=== PATIENT | male | born 1945 | race Caucasian/White ===

== ENCOUNTER 2016-03-20 05:56 | Inpatient (IN) ==
[2016-03-20] MEDS ORDERED: Lidocaine 1% 20 ML MDV ID ONE (06:19)
[2016-03-20] MEDS ORDERED: CeFAZolin Pre 2,000 MG/100 ML 2,000 MG/100 ML BAG IVPB ONE (06:19)
[2016-03-20] MEDS ORDERED: Vancomycin 1,250 MG in D5% in Water 250 ML IVPB ONE ×2 (06:19→20:20)
[2016-03-20] MEDS ORDERED: Albuterol 2.5 MG/3 ML NEBULIZER ONE (06:30)
[2016-03-20] MEDS ORDERED: Albuterol 2.5 MG/3 ML NEBULIZER IH ONE (06:38)
--- NOTE | 2016-03-20 06:47 | Anesthesia Evaluation PreOp ---
Date of Encounter: 03/20/16 Time of Encounter: 06:45 - Past History Planned Operation: endograft AAA Cardiac History: Denies any Significant Hx, Other (stress 03/28: ef 72, neg ischemia) Pulmonary History: Smoker (1/2 ppd) BLOCK FEEDER History: Denies Any Significant HX Other Medical History: Denies Any Significant HX Anesthesia History: No Prior Anesthetic Complications, Past Anesthesia (r shoulder) Alcohol Use: rarely Drug use: none Medications and Allergies Allergies No Known Allergies Allergy (Verified 03/20/16 06:47) - Meds/Allergy Pre-op Review Medications Reviewed: Yes Allergies Reviewed: Yes Beta Blockers on Current Med List: No Anesthesia Results - Labs Laboratory Tests 03/17/16 03/17/16 03/17/16 10:40 10:40 10:40 Hgb 14.8 Hct 45.4 Plt Count 212 PT 11.5 INR 1.1 APTT 31.2 Sodium 141 Potassium 4.0 Creatinine 0.83 - Imaging EKG: report reviewed (sr) Anesthesia Exam O2 Sat Height 1.85 m Height 1.85 m Weight 84.822 kg Weight 84.822 kg O2 Sat by Pulse Oximetry 98 Vital Signs Temp Pulse Resp BP Pulse Ox 97.9 F 74 18 176/80 98 03/20/16 06:19 03/20/16 06:19 03/20/16 06:19 03/20/16 06:19 03/20/16 06:19 Height: 1.85 Weight: 84 NPO (# of Hours): >8 - HEENT Pupil (Motor): Pupils equal, EOMI Mallampati: III Teeth: Edentulous, Poor dentition Oral Opening: Greater than 3 - BLOCK FEEDER LOC: Oriented BLOCK FEEDER Motor: Normal RUE, Normal LUE, Normal RLE, Normal LLE, Normal Face BLOCK FEEDER Sensory: Normal: RUE, LUE, RLE, LLE, Face - Cardiac Rhythm: Regular Murmur: None - Pulmonary Breath Sounds: bilateral Clear Respiratory Effort: Symmetrical Anesthesia Assess/Plan ASA Score: 3 Modified Hunter Scale for Level of Consciousness: Cooperative, oriented, and tranquil Anesthetic Plan: General Monitoring Plan: Standard Monitors Recovery Plan: PACU
[2016-03-20] MEDS ORDERED: *HR* FentaNYL (PF) 100 MCG/2 ML VIAL ONE (07:02)
[2016-03-20] MEDS ORDERED: *HR* Propofol 200 MG/20 ML VIAL IVP ONE (07:02)
[2016-03-20] MEDS ORDERED: *HR* Midazolam HCl 5 MG/5 ML VIAL IVP ONE (07:03)
[2016-03-20] MEDS ORDERED: *HR* Rocuronium Bromide 50 MG/5 ML VIAL ONE ×2 (07:04→08:51)
[2016-03-20] MEDS ORDERED: Lidocaine -MPF 2% 2 ML VIAL ONE (07:04)
[2016-03-20] MEDS ORDERED: Ondansetron 4 MG/2 ML VIAL ONE (07:04)
[2016-03-20] MEDS ORDERED: Dexamethasone 4 MG/ML VIAL ONE (07:04)
[2016-03-20] MEDS ORDERED: *HR* Phenylephrine 10 MG/ML VIAL ONE (07:07)
[2016-03-20] MEDS ORDERED: Vancomycin 1,000 MG VIAL ONE (07:14)
[2016-03-20] MEDS ORDERED: Heparin 1,000 UNITS/500 mL NS 1,000 ML ONE (07:15)
--- NOTE | 2016-03-20 07:33 | History & Physical Report ---
Date of Encounter: 03/20/16 Time of Encounter: 07:28 24 Hour HP Update - Instructions Instructions: If the History and Physical is less than 30 days old and was completed prior to A.M. admission and or procedure and has NOT been updated on calendar day of procedure please complete this update prior to performing procedure. - Update Patient reports changes in Medical Condition: No Changes in assessment/condition: No Changes in Medication: No Preop tests/diagnostics Reviewed: Yes Surgery Remains Indicated: Yes Consent for Planned Operative Procedure(s) Verified: Yes - Pre-Operative Checklist Preoperative Checklist Indicated: Yes Prophylactic Antibiotic Ordered: Yes (Vancomycin due to MRSA risk) Home Medications Include Beta Genoveva: No Beta Genoveva Taken Today (Day of Surgery): No Beta Genoveva Taken Yesterday (Day Prior to Surgery): No Is VTE Prophylaxis Indicated?: Yes
[2016-03-20] MEDS: Ringers Solution, Lactated 1,000 ML IVC SCH ×2 (07:37→12:48)
[2016-03-20] MEDS ORDERED: *HR* HYDROmorphone (PF) 1 MG/ML SYRINGE IVP PRN (08:35)
[2016-03-20] MEDS ORDERED: *HR* Labetalol 100 MG/20 ML MDV IVP PRN (08:35)
[2016-03-20] MEDS ORDERED: *HR* Promethazine 25 MG/ML VIAL IVP PRN ×2 (08:35→13:00)
[2016-03-20] MEDS ORDERED: *HR* HYDROmorphone 2 MG/ML SYRINGE ONE (09:10)
[2016-03-20] MEDS ORDERED: *HR* Heparin 5,000 UNIT/ML VIAL ONE ×2 (09:23→10:23)
[2016-03-20] MEDS ORDERED: Heparin 1,000 UNITS/500 mL NS 1,500 ML ONE (10:11)
[2016-03-20] MEDS ORDERED: Neostigmine Methylsulfate 3 MG/3 ML SYRINGE ONE (11:35)
--- NOTE | 2016-03-20 12:30 | Operative Note ---
Date of procedure: 03/20/16 Pre-op diagnosis: 6.7cm infrarenal abdominal aortic aneurysm Post-op diagnosis: same Procedure: 1. Introduction of catheter into the aorta via right common femoral artery. 2. Introduction of catheter into the aorta via left common femoral artery. 3. Right femoral vessel exposure for endograft placement. 4. Left femoral vessel exposure for endograft placement. 5. Endograft repair of abdominal aortic aneurysm with Cook Zenith graft and two docking limbs including radiologic supervision and interpretation. 6. Left common iliac artery 10 x37mm stent post dilated with 12 x 40mm balloon. Complications: None Anesthesia: GETA Surgeon: Salvador Raymundo Supervisor Fur Dressing: Yogesh Pandya Estimated blood loss (cc): 100 Specimen: None Condition: stable Disposition: PACU Procedure in Detail: Indications: The patient is a 70 year old male who was found to have a 6.7cm infrarenal abdominal aortic aneurysm. His anatomy appeared acceptable for endograft placement. Procedure: The patient was identified, brought to the operating room and placed in the supine position on the operating room table. After induction of general endotracheal anesthesia, the patient was cleaned and draped in normal sterile fashion. Oblique incisions were made over both groins sharply. Hemostasis was obtained with electrocautery. Using blunt and sharp and electrocautery dissection, the bilateral common, deep and superficial femoral arteries were dissected circumferentially and surrounded with Vesseloops. At this point, the patient received 5000 units of heparin intravenously and then bilateral femoral punctures with large-bore needles were performed. Bentson wires were advanced into the aorta under fluoroscopic view. Given the anatomy, the main body was selected to be the right side of the patient. The needles were exchanged for bilateral #8-Yakut sheaths and a long Pigtail catheter was advanced over the right wire into the aortic arch. The wire was replaced with a Lunderquist wire. The catheter was removed and repositioned in the suprarenal aorta via the left femoral artery. The main body was inserted over the Lunderquist wire with the contralateral limb being in the anterolateral position. An aortogram was then performed at the level of the renal arteries. The graft was positioned just inferior to the renal arteries and the first 2 segments were deployed. Again an aortogram revealed adequate infrarenal placement. The graft was then further opened to the contralateral limb exposed. A final angiogram was performed confirming adequate infrarenal placement. The suprarenal stent was deployed in the usual fashion. The contralateral limb was then selected with a Bentson wire using a guiding catheter. Intragraft placement of the wire was confirmed by placing the pigtail and spinning it freely as well as injecting a small amount of contrast. An oblique view of the pelvis was performed with contrast to size the left extension limb. The #8-Yakut sheath was removed and exchanged for the appropriate limb, which was advanced under fluoroscopic view and positioned. It was then expanded. The introducer was removed. The remaining portion of the main body was deployed, the top cap was retrieved and the introducer was removed. An oblique view of the right pelvis was performed in a similar fashion to determine the length of the extension graft on the right. The graft extension was then advanced on the right and positioned in the usual fashion. Upon completion of the graft docking limb extension, a Coda balloon was then advanced into the graft proximal and distal endpoints as well as overlap were expanded with gentle pressure. The balloon was left in the suprarenal position and a Flush catheter was placed in the suprarenal aorta. A flush completion angiogram revealed no evidence of an endoleak. However, a high grade stenosis was present in the left iliac limb. This was intially treated with a 10 x 40mm balloon. However, the stenosis persisted. A 10 x 37mm stent was then deployed across the lesion and post dilated with a 12 x 40mm ballloon. A completeion angiogram revealed resolution of the stnosis. Tension was applied to the vessel loops in the groin. The bilateral sheaths were then removed. After confirming hemodynamic stability, the wires were then removed. The bilateral arteriotomies were repaired with a running 6-0 Prolene. Antibiotic irrigation was infused into the groin. Platelet rich and platelet poor plasma were infused into the incisions. The bilateral groins were closed with a single layer of 2-0 Vicryl followed by two layers of 3-0 Vicryl followed by a layer of 3-0 monocryl in the subcuticular region. Sterile dressings were applied. The patient was then extubated and taken to the recovery room in stable condition. COMPLICATIONS: None. FINDINGS: Juxtarenal positioning of the endograft with no Evidence of endoleak. DEVICE SIZES: 1. Main body, 28 x 96cm. 2. Contralateral leg, 13 x 90cm. 3. Ipsilateral leg, 13 x 74cm.
--- NOTE | 2016-03-20 12:49 | Anesthesia Evaluation Post Op ---
Date of Encounter: 03/20/16 Time of Encounter: 12:48 - Vital Signs Vital Signs: Selected Entries 03/20/16 12:41 Temperature 97.8 F Pulse Rate 62 Respiratory Rate 14 Blood Pressure 159/76 O2 Sat by Pulse Oximetry 100 Oxygen Flow Rate (LPM) 2 - Lungs Lungs: Clear Ascult./Percussion - Airway Airway: Non-obstructed - Cardiovascular Regular Rate - Mental Status Mental Status: Alert & Oriented, Answers Appropriately - Pain Pain Scale: 0 Pain Scale used: Numeric (1 - 10) - Nausea Vomiting Nausea Vomiting: Not Present - Hydration Hydration: Tolerates oral liquids, [place] catheter Notes: 03/20/16 12:48 no apparent anesthesia complications - Discharge PostOp Status: Transfer Patient to floor
[2016-03-20] MEDS ORDERED: Naloxone 0.4 MG/ML INJ IVP PRN (13:00)
[2016-03-20] MEDS ORDERED: *HR* Labetalol 20 MG/4 ML SYRINGE IVP PRN (13:00)
[2016-03-20] MEDS ORDERED: Ondansetron 4 MG/2 ML VIAL IVP PRN (13:00)
[2016-03-20] MEDS ORDERED: *HR* Morphine 2 MG/ML SYRINGE IVP PRN (13:00)
[2016-03-20] MEDS ORDERED: *HR* OxyCODONE Immed Rel 5 MG TABLET PO PRN (13:00)
[2016-03-20] MEDS ORDERED: *HR* HYDROcodone/Acet 5/325 mg TABLET PO PRN (13:00)
[2016-03-20] MEDS ORDERED: Acetaminophen 325 MG TABLET PO PRN (13:00)
[2016-03-20] MEDS: Nicotine 21 MG PATCH.TD24 TD SCH (15:04)
[2016-03-20] MEDS: ceFAZolin 2,000 MG in D5% in Water 100 ML IVPB SCH (15:52)
[2016-03-20] MEDS: *HR* Metoprolol 5 MG/5 ML VIAL IVP SCH (17:54)
--- NOTE | 2016-03-20 21:24 | Operative Note ---
Date of procedure: 03/20/16 Pre-op diagnosis: AAA Post-op diagnosis: same Procedure: Endovascular repair of abdominal aortic aneurysm using Hashtago Zenith stent graft system. (Main body via right side with components placement into the bilateral iliac system). Stent angioplasty of left common iliac artery with a 10 x 37 mm balloon expandable stent followed by further dilatation with balloon angioplasty with a 12 x 40 mm balloon. Right common iliac artery balloon angioplasty with 10 x 40 mm balloon. Complications: None Anesthesia: GETA Surgeon: Salvador Raymundo Co-Surgeon: Yogesh Pandya Estimated blood loss (cc): 100 Specimen: None Condition: stable Disposition: PACU Procedure in Detail: History Mr. Skinner is a 70-year-old white male with an abdominal aortic aneurysm. Patient had appropriate anatomy for endovascular repair and he now comes for endovascular treatment. Procedure After informed consent was obtained the patient was taken from the holding area to the operating room. General endotracheal anesthesia was established. The abdomen groin and upper thighs were sterilely prepped and draped. A timeout protocol was observed. A 2 team approach was utilized for this procedure due to the patient's ongoing medical problems. Also because of the need for complex intraoperative decision making and the multiple procedures that needed to be accomplished to decrease general anesthetic time and decrease blood loss. A 2 team approach was utilized so that the common femoral arteries were then opened and exposed. Controls obtained of the femoral vessels. Then using 18- gauge needles the arteries were punctured in a retrograde fashion. A guidewire was inserted. This was followed by a 8 Egyptian sheath and dilator. The dilator was removed and the sheath was aspirated and flushed. The wires were then manipulated under fluoroscopic control the placed in the proximal descending thoracic aorta. Systemic therapeutic anticoagulation was then achieved using intravenous heparin. Using the pigtail catheter the entry wire was then exchanged for a Lunderquist wire. The pigtail catheter was then placed via the left side onto the supra renal area. The main body was selected and this was a 28 x 96 mm bifurcated stent graft. The aortogram identified the location of the renal arteries and the main body was then placed with suprarenal fixation and preservation of the renal artery orifices. This was opened to the extent that the docking limb on the left side was exposed. This was then cannulated from the left side. Appropriate position of the wire within the stent graft was confirmed by the use of contrast. The left limb was then placed and this was a 13 x 90 Spiral Z limb. This was placed into the main body of the stent graft and was placed distally so that it would lie proximal to the iliac bifurcation. With this secure, attention was directed back to the right side. The top cap was recaptured and secured and the component was completely deployed. The top cap was then removed. The pigtail catheter was then reinserted and a repeat angiogram was obtained as had been obtained on the left side to measure the iliac system and iliac bifurcation. A 13 x 74 Spiral Z limb was selected. This was then deployed on the right side again with preservation of the right iliac bifurcation. A Coda balloon was then inserted via both the left and right side and gently inflated so that the stent graft and its components were completely dilated and fixed both proximally and distally and the Coda balloon was removed. The pigtail catheter was reinserted and another aortogram was obtained. This demonstrated patency of the stent graft and preservation of the renal arteries. However demonstrated significant stenosis in the left and right iliac system. Therefore the left iliac system was initially dilated with a 10 x 40 balloon. The resulting images however unsatisfactory. Therefore a 10 x 37 mm balloon expandable stent was placed into the left iliac system. This was deployed without difficulty. Following this a 12 x 40 mm balloon was inserted into the stent and the stent was then gently oversized so that it would appropriately oppose the stent to the wall of the stent graft. In addition a 10 x 40 mm balloon was used to dilate the right iliac system. With completion of these endovascular interventions the completion angiogram demonstrated successful results. The wire and catheters were removed. The puncture site at the groin were then closed using 6-0 Prolene suture bilaterally. After appropriate backbleeding and flushing the femoral system was unclamped and the legs were reperfused with pulsatile flow. Excellent pulsations of the femoral level were identified. The wounds were then irrigated with antibiotic containing solution. Hemostasis was achieved. The wounds were closed in layers using absorbable suture. Dry sterile dressings were applied. The patient was extubated in the operating room. There were no intraoperative complications. The patient tolerated the procedure well. The patient was taken to the recovery room in stable condition.
[2016-03-21] MEDS: *HR* Metoprolol 5 MG/5 ML VIAL IVP SCH ×2 (00:10→06:27)
[2016-03-21] MEDS: ceFAZolin 2,000 MG in D5% in Water 100 ML IVPB SCH (00:11)
[2016-03-21 05:18] LABS: Basophils % 0.2 %; Eosinophils % 0.1 %; Hematocrit 42.8 % (37.5-50.1); Hemoglobin 13.7 g/dL (12.9-16.9); Immature Granulocytes % 0.5 % (0-4); Immature Platelets 3.1 % (1.1-6.1); Lymphocytes # 1.2 K/mcL (0.6-4.6); Lymphocytes % 9.1 %; Mean Corpuscular Hemoglobin 27.1 pg (28.0-33.3); Mean Corpuscular Volume 84.8 fL (83.0-100.0); Mean Platelet Volume 9.3 fL (9.4-12.4); Monocytes # 1.2 K/mcL (0.0-1.3); Monocytes % 8.5 %; Neutrophils # 11.1 K/mcL (1.6-8.9); Platelet Count 187 K/mcL (140-400); Red Blood Count 5.05 M/mcL (4.19-5.50); Red Cell Distribution Width 14.1 % (11.5-14.5); Segmented Neutrophils % 81.6 %
[2016-03-21 05:30] LABS: BUN/Creatinine Ratio 12 (6-26); Blood Urea Nitrogen 9 mg/dL (8-26); Calcium 9.3 mg/dL (8.6-10.8); Carbon Dioxide 27 mEq/L (19-29); Chloride 104 mEq/L (98-109); Glucose 118 mg/dL (70-99); Osmolality,Calculated 290 (280-300); Potassium 4.3 mEq/L (3.5-4.5); Sodium 140 mEq/L (136-145); eGFR For African Americans > 60 (> 60); eGFR For Non-African Americans > 60 (> 60)
[2016-03-21] MEDS ORDERED: *HR* Heparin 5,000 UNIT/ML VIAL SQ SCH ×2 (06:00)
[2016-03-21 07:55] VITALS: BP 152/71
--- NOTE | 2016-03-21 07:59 | Discharge Summary ---
Date of Encounter: 03/21/16 Time of Encounter: 08:05 - Discharge Diagnosis (1) AAA (abdominal aortic aneurysm) without rupture Priority: Primary Status: Chronic Comments: The patient is postoperative day #1 after endograft repair of his aneurysm. He is without complaints. He will be discharged today. (2) Tobacco abuse Priority: Secondary Status: Chronic Comments: The patient was counseled regarding smoking cessation. - Discharge Medications Prescriptions: Aspirin Enteric Coated [Aspirin EC] 81 mg PO DAILY #90 tablet. Nicotine Patch [Nicoderm] 21 mg TD DAILY #30 patch.td24 OxyCODONE Immed Rel [Roxicodone 5 MG] 5 mg PO Q4H PRN #40 tablet PRN Reason: postoperative pain Home Medications: Aspirin Enteric Coated [Aspirin EC] 81 mg PO DAILY #90 tablet. 03/21/16 [Rx] Nicotine Patch [Nicoderm] 21 mg TD DAILY #30 patch.td24 03/21/16 [Rx] OxyCODONE Immed Rel [Roxicodone 5 MG] 5 mg PO Q4H PRN #40 tablet 03/21/16 [Rx] Allergies/Adverse Reactions: Allergies No Known Allergies Allergy (Verified 03/20/16 06:47) Date of admission: 03/20/16 12:59 Primary care physician: PCP NO Procedure(s) Performed: Endograft repair of abdominal aortic aneurysm Discharging clinician: Salvador Raymundo Anticipated date of discharge: 03/21/16 - Patient Status Disposition: Home, Self-Care Condition: Good Functional capacity at discharge: independent ambulation Overall status at discharge: patient is back to baseline - Discharge Instructions Instructions: How to Stop Smoking (GEN), Peripheral Vascular Disorders (DC) Follow Up With: Serge Rolle MD [Partnered Physician] - 03/27/16 2:00 pm Salvador Raymundo MD [Partnered Physician] - 04/21/16 11:00 am Additional Instructions: May remove bandages and shower on 03/22/16. Wash wounds gently and pat to dry. Apply dry gauze to wounds daily for 7 days. No tub baths or swimming until 04/09/16. Call [phone] with questions or concerns. - Diet and Activity Activity: increase activity as tolerated Diet: low fat, low cholesterol - Hospital Course Hospital course: Mr. Skinner is a 70 year old male with a history of an abdominal aortic aneurysm. He was admitted on 03/20/16 and underwent endograft repair of his aneurysm. He tolerated the procedure well and was discharged on postoperative day #1 without complication. - Time Spent with Patient Total time spent providing and/or coordinating discharge services: Exam Vital Signs, Last 4 Hours Temp Pulse Resp BP Pulse Ox 03/21/16 07:50 98.4 F 69 16 152/71 97 03/21/16 07:18 68 03/21/16 05:15 68 03/21/16 05:14 98.2 F 72 11 133/68 95 General: Present: Conversant, No Apparent Distress HEENT: Present: Pupils equal Cardiac: Present: Reg Rate and Rhythm Lungs: Present: Normal Breath Sounds, No Wheeze, Rales, Rhonchi Neuro: Present: Alert and responsive, No focal deficits noted, Motor nerves grossly intact, Sensory nerves grossly intact Abdomen: Present: Soft, Non-tender. Absent: Masses Vascular: Present: Normal capillary refill, Pulse, normal, Surgical incisions ( no hematoma, clean, dry and intact). Absent: Cyanosis, Edema - VTE Documentation of Mechanical Device: Intermittent pneumatic compression device
[2016-03-21] MEDS: Nicotine 21 MG PATCH.TD24 TD SCH (08:16)
[2016-03-21] MEDS ORDERED: Aspirin Enteric Coated 81 MG Tablet PO SCH (09:00)
== END 2016-03-21 10:23 | disposition home or self-care (01) | DRG 269 ==
LOC: SAMDAY 05:56 → 2NNU 12:59
PROVIDERS: ADMIT Surgery; ATTEND Surgery